=== PATIENT | female | born 1985 | race American Indian/Alaskan Native ===

== ENCOUNTER 2019-07-26 23:50 | Emergency (ER) | payer MEDICAID, OTHER | END 2019-07-27 02:40 | disposition home or self-care (01) | LOC: ED 23:50 | CPT/HCPCS: 99282 ==

== ENCOUNTER 2021-03-16 14:39 | Emergency (ER) | payer MEDICAID | END 2021-03-16 14:40 | disposition left against medical advice (07) | LOC: ED 14:39 | DX: O26.891 Other specified pregnancy related conditions, first trimester (principal); Z53.21 Procedure and treatment not carried out due to patient leaving prior to being seen by health care provider; Z3A.11 11 weeks gestation of pregnancy ==